=== PATIENT | male | born 1995 | race Caucasian/White ===

== ENCOUNTER 2019-07-31 23:42 | Emergency (ER) | payer OTHER ==
--- NOTE | 2019-08-01 00:14 | ER Document Report ---
ED Medical Screen (RME) - General Chief Complaint: Ankle Pain Stated Complaint: FALL-LEFT ANKLE PAIN Time Seen by Provider: 08/01/19 00:12 Mode of Arrival: Ambulatory Information source: Patient Notes: 24-year-old male who was chasing his dog 30 yard when he tripped in a hole the dog the dog twisting his left ankle - HPI Onset: Just prior to arrival Onset/Duration: Sudden Quality of pain: Achy, Fullness, Throbbing - Related Data Allergies/Adverse Reactions: latex Allergy (Verified 08/01/19 00:10) Past Medical History - Social History Chew tobacco use (# tins/day): No Frequency of alcohol use: Occasional Drug Abuse: None Physical Exam - Vital signs Vitals: Temp Pulse Resp BP Pulse Ox 98.5 F 74 18 126/65 H 97 07/31/19 23:53 07/31/19 23:53 07/31/19 23:53 07/31/19 23:53 07/31/19 23:53 Course - Vital Signs Vital signs: Temp Pulse Resp BP Pulse Ox 98.5 F 74 18 126/65 H 97 08/01/19 00:08 07/31/19 23:53 07/31/19 23:53 07/31/19 23:53 07/31/19 23:53
--- NOTE | 2019-08-01 00:43 | RADIOLOGY REPORT (SQ) ---
EXAM DESCRIPTION: XR ANKLE 3 OR MORE VIEWS COMPLETED DATE/TME: 08/01/2019 00:12 CLINICAL HISTORY: 24 years, Male, pain COMPARISON: None. NUMBER OF VIEWS: 3 TECHNIQUE: 3 view left ankle LIMITATIONS: None. FINDINGS: Negative for fracture or dislocation. Ankle mortise is intact IMPRESSION: Negative exam copyright 2011 [facility]- All Rights Reserved
--- NOTE | 2019-08-01 02:24 | ER Document Report ---
ED General - General Chief Complaint: Ankle Pain Stated Complaint: FALL-LEFT ANKLE PAIN Time Seen by Provider: 08/01/19 00:12 Mode of Arrival: Ambulatory Notes: Patient is a 24-year-old white male with no reported past medical history presents the emergency department today with a chief complaint of left ankle and proximal foot pain after an injury that occurred before arrival. The patient reports that he was chasing his dog when he accidentally stepped into a hole while running that 1 of his dogs dog. He states he was falling forward after stepping in a hole and heard a pop. He feels pain in the proximal dorsum of the foot and over the medial proximal foot and medial malleolus area. He denies any tenderness of the Achilles region. Denies any limited range of motion, numbness, tingling or weakness. Pain is worse with bearing weight and movement. - Related Data Allergies/Adverse Reactions: latex Allergy (Verified 08/01/19 00:10) Past Medical History - General Information source: Patient - Social History Smoking Status: Former Smoker Chew tobacco use (# tins/day): No Frequency of alcohol use: Occasional Drug Abuse: None Family History: Reviewed & Not Pertinent Patient has homicidal ideation: No Review of Systems - Review of Systems Musculoskeletal: Joint pain -: Yes All other systems reviewed and negative Physical Exam - Vital signs Vitals: Temp Pulse Resp BP Pulse Ox 98.5 F 74 18 126/65 H 97 07/31/19 23:53 07/31/19 23:53 07/31/19 23:53 07/31/19 23:53 07/31/19 23:53 - General General appearance: Appears well, Alert - Respiratory Respiratory status: No respiratory distress Chest status: Nontender Breath sounds: Normal Chest palpation: Normal - Cardiovascular Rhythm: Regular Heart sounds: Normal auscultation - Extremities Ankle: Other - Full passive range of motion of the left ankle and foot. No obvious swelling or deformity. No step-off or crepitus. 2+ DP/PT on the left. Gait limited by pain. Good capillary refill distally in all the toes. Achilles is intact by palpation and nontender. Normal Sanz squeeze test. - Neurological Neuro grossly intact: Yes Cognition: Normal Orientation: AAOx4 - Psychological Associated symptoms: Normal affect, Normal mood - Skin Skin Temperature: Warm Skin Moisture: Dry Skin Color: Normal Course - Re-evaluation Re-evalutation: 08/01/19 02:21 History and physical consistent with a sprained ankle/foot. X-rays negative for acute process per radiologist. Nurse applied Peter wrap and patient was given crutches with instructions for use. We discussed rice. Counseled him regarding the importance of outpatient follow-up and advised to return here any ER immediately with any new, persistent or worsening symptoms. He verbalized understood and agreed. - Vital Signs Vital signs: Temp Pulse Resp BP Pulse Ox 98.5 F 74 18 126/65 H 97 08/01/19 00:08 07/31/19 23:53 07/31/19 23:53 07/31/19 23:53 07/31/19 23:53 Discharge - Discharge Clinical Impression: Ankle sprain Qualifiers: Encounter type: initial encounter Involved ligament of ankle: unspecified ligament Laterality: left Qualified Code(s): S93.402A - Sprain of unspecified ligament of left ankle, initial encounter Foot sprain Qualifiers: Encounter type: initial encounter Laterality: left Qualified Code(s): S93.602A - Unspecified sprain of left foot, initial encounter Condition: Stable Disposition: HOME, SELF-CARE Instructions: Sprained Ankle ([facility]) Additional Instructions: Follow-up with your regular doctor in 2 to 3 days for reevaluation. Return here or any ER immediately with any new, persistent or worsening symptoms. Referrals: SHAYY BORJA DO [ACTIVE STAFF] - Follow up as needed
[2019-08-01 02:37] VITALS: BP 126/75
== END 2019-08-01 02:43 | disposition home or self-care (01) ==
LOC: ER 23:42
DX: S93.402A Sprain of unspecified ligament of left ankle, initial encounter (principal); M25.572 Pain in left ankle and joints of left foot; W18.39XA Other fall on same level, initial encounter; Y93.89 Activity, other specified; Y92.007 Garden or yard of unspecified non-institutional (private) residence as the place of occurrence of the external cause; Z87.891 Personal history of nicotine dependence; Z91.040 Latex allergy status
CPT/HCPCS: 99283